=== PATIENT | female | born 1985 | race Caucasian/White ===

== ENCOUNTER 2023-11-11 08:22 | Emergency (ER) | payer MEDICAID, SELFPAY ==
--- NOTE | ~2023-11-11 | XR_ITS ---
EXAMINATION: XR CHEST CLINICAL INFORMATION: SOB COMPARISON: None available. TECHNIQUE: Frontal view of the chest was obtained. FINDINGS: The lungs are well expanded. There is prominence of the interstitial markings. This is of unknown chronicity. There is no pulmonary vascular redistribution. Trace linear density at the lung bases is most suggestive of atelectasis. No convincing evidence of focal consolidation interstitial pulmonary edema or pneumothorax. No significant abnormality is noted involving the heart, mediastinum, bony thorax or soft tissues. XR/XR chest 1V IMPRESSION: 1. No convincing evidence of pneumonia. 2. Prominence of the interstitial markings of unknown chronicity.
[2023-11-11 08:36] VITALS: BP 128/79; PULSE 116; RESP 18; TEMP 36.4; O2SAT 93; BMI 50.4
[2023-11-11] MEDS: dexAMETHasone sod phosphate 10 MG/ML VIAL IVPUSH (09:22)
[2023-11-11] MEDS: Albuterol Sulfate 90 MCG 8 GM INHALER 4 PUFF INHALE (09:40)
[2023-11-11 09:41] VITALS: PULSE 102; RESP 18; O2SAT 98
[2023-11-11 09:41] LABS: COVID-19 Test Negative (Negative); IDNOW Serial# 58CA691E
--- NOTE | 2023-11-11 09:41 | ED.ASTHMA ---
HPI - Asthma General Chief Complaint: Asthma Stated Complaint: bronchitis? Time Seen by Provider: 11/11/23 08:59 Source: patient Mode of arrival: ambulatory Limitations: no limitations History of Present Illness HPI Narrative: ??This is a 38 -year-old female presenting with fatigue, malaise, , congestion,, dry cough times a week..? Multiple sick contacts at work and daughter sick w/ similar sx. .? Hasnt covid tested at home. ? Reports still eating and drinking.? No chest pain, shortness of breath, abdominal pain, vision changes, dizziness or weakness. Related Data Previous Rx's Medication Instructions Recorded albuterol sulfate 90 mcg/actuation 2 inh inhalation Q4-6H PRN 11/11/23 breath activated powder inhaler shortness of breath or wheezing #1 ea benzonatate 100 mg capsule 100 mg PO BID PRN cough #20 caps 11/11/23 prednisone 50 mg tablet 50 mg PO DAILY 5 days #5 tabs 11/11/23 Allergies Allergy/AdvReac Type Severity Reaction Status Date / Time mustard Allergy Hives Verified 11/11/23 09:18 Peanut Butter Allergy Hives Verified 11/11/23 09:18 seafood Allergy Hives Verified 11/11/23 09:18 [facility] Social History Social History Advance Directives: No Physical Exam Vital Signs: Vital Signs: Last Vital Signs Temp 97.5 F 11/11/23 08:36 Pulse 102 H 11/11/23 09:41 Resp 18 11/11/23 09:41 BP 128/79 11/11/23 08:36 Pulse Ox 93 11/11/23 08:36 O2 Del Method Room Air 11/11/23 08:36 BMI result Body Mass Index 50.4 Course Reevaluation(s) Reevaluation #1: COVID and flu negative. Patient feeling better after albuterol given by Respiratory. Prednisone, benzonatate and albuterol sent to the pharmacy. Patient saturating well on room air. No indication for antibiotics as I do not suspect this is bacterial in nature. No fever. Educated patient on diagnosis and treatment plan, answered all question, patient verbalizes understanding. At this time patient will be discharged home, advised to return with new or worsening symptoms. Educated on worrisome signs and symptoms and when to return. At this time I feel comfortable discharge home. Time: 09:47 Medications Administered Discontinued Medications Generic Name Dose Route Start Last Admin Trade Name Freq PRN Reason Stop Dose Admin Albuterol Sulfate 4 puff 11/11/23 09:34 11/11/23 09:40 Albuterol Sulfate 90 Mcg 8 Gm Inhaler INHALE 11/11/23 09:35 4 puff ONCE ONE Administration Dexamethasone Sodium Phosphate 10 mg 11/11/23 09:15 11/11/23 09:22 Dexamethasone Sod Phosphate 10 Mg/Ml Vial IVPUSH 11/11/23 09:16 10 mg ONCE ONE Administration Medical Decision Making Medical Decision Making MDM Narrative: 38-year-old female presenting with viral symptoms ongoing for the past few days. ??Physical examination expiratory wheezing throughout This is likely flu versus COVID versus RSV versus other viral illness? Versus bronchitis versus asthma.? Unlikely pneumonia, PE, ACS, threat to airway Plan- viral test? Differential Diagnosis Differential Diagnoses: The differential diagnosis associated with the presentation includes This is likely flu versus COVID versus RSV versus other viral illness? Versus bronchitis versus asthma.? Unlikely pneumonia, PE, ACS, threat to airway Admission/Observation Consideration of admission/observation: Escalation of care including admission/observation considered no indication Lab Data Labs: Lab Results 11/11/23 Range/Units 09:11 COVID-19 ([facility]) Negative (Negative) COVID-19 Clin Com See Note Influenza Type A ([facility]) Negative (Negative) Influenza Type B ([facility]) Negative (Negative) Influenza A & B Note See Note Discharge Plan Discharge Clinical Impression: Asthma with acute exacerbation Patient Disposition: Home, Self-Care Instructions: Asthma (ED) Additional Instructions: Take your medications as prescribed. If you were prescribed antibiotics today, it is important that you take your medication to their entirety, do not skip any doses, do not finish them early. Follow-up with your primary care provider this week. Return to the emergency department with new or worsening symptoms. Such as fevers, chills, chest pain, shortness of breath, nausea, vomiting, dizziness, headache, vision changes, lethargy In case of emergency call 911 Prescriptions: New benzonatate 100 mg capsule 100 mg PO BID PRN (Reason: cough) Qty: 20 0RF prednisone 50 mg tablet 50 mg PO DAILY 5 Days Qty: 5 0RF albuterol sulfate 90 mcg/actuation aerosol powdr breath activated 2 inh inhalation Q4-6H PRN (Reason: shortness of breath or wheezing) Qty: 1 0RF Referrals: Physician,Unknown J [Primary Care Provider] - 2 days Stand Alone Forms: Work/School Release
[2023-11-11 09:46] LABS: IDNOW Serial# 9DB6401D; Influenza A Negative (Negative); Influenza B2 Negative (Negative)
[2023-11-11 09:58] VITALS: BP 113/69; PULSE 107; RESP 16; TEMP 36.8; O2SAT 93
[2023-11-11 10:03] VITALS: BP 112/66; PULSE 107; RESP 16; TEMP 36.8; O2SAT 93
== END 2023-11-11 10:04 | disposition home or self-care (01) ==
PROVIDERS: Physician Assistant; Emergency Provider Emergency Medicine
DX: J45.901 Unspecified asthma with (acute) exacerbation (principal); R05.9 Cough, unspecified; R53.83 Other fatigue; R06.02 Shortness of breath; Z11.52 Encounter for screening for COVID-19
CPT/HCPCS: 71045; 87502; 87635; 94640; 99284; J1100